=== PATIENT | male | born 1995 | race Caucasian/White ===

== ENCOUNTER 2017-04-22 19:10 | Emergency (ER) | payer OTHER ==
[~2017-04-22] VITALS: Ht 162.6 cm; Wt 79.2 kg
[2017-04-22] MEDS ORDERED: KETOROLAC 30 MG/1 ML ONE (19:37)
[2017-04-22] MEDS ORDERED: HYDR-882 PO (19:45)
[2017-04-22] MEDS ORDERED: MELO-184 PO (19:45)
[2017-04-22 20:05] LABS: BLOOD UREA NITROGEN 14 mg/dL (7-18)
[2017-04-22 20:14] LABS: IS PT STATUS REG ER OR PRE ER? YES
[2017-04-22] MEDS ORDERED: KETOROLAC 30 MG/1 ML IM ONE (21:00)
[2017-04-22 21:35] VITALS: BP 128/82
== END 2017-04-22 21:37 | disposition home or self-care (01) ==
LOC: ED 21:00
DX: S46.812A Strain of other muscles, fascia and tendons at shoulder and upper arm level, left arm, initial encounter (principal); R07.89 Other chest pain; X58.XXXA Exposure to other specified factors, initial encounter; Y93.89 Activity, other specified; Y92.89 Other specified places as the place of occurrence of the external cause; Y99.8 Other external cause status
CPT/HCPCS: 36415; 71020; 80048; 82040; 84484; 85025; 93005; 96372; 99285; J1885